=== PATIENT | male | born 1960 | race Caucasian/White ===

== ENCOUNTER 2018-02-07 17:01 | Emergency (ER) | payer OTHER ==
[~2018-02-07] VITALS: Ht 175.3 cm; Wt 89.8 kg
[2018-02-07] MEDS ORDERED: LIDOCAINE 1% Multi-Dose 20 ML VIAL. IJ ONE (17:15)
[2018-02-07] MEDS ORDERED: DIPHTH,PERTUSS(ACELL),TET TOX 0.5 ML DISP.SYRIN. VAX IM ONE (17:15)
[2018-02-07 17:27] VITALS: BP 114/65
[2018-02-07] MEDS ORDERED: AMOX1TAB61 PO (17:34)
[2018-02-07] MEDS ORDERED: LEVO750T31 PO (17:38)
[2018-02-07] MEDS ORDERED: CLIN300C8 PO (17:38)
[2018-02-07] MEDS ORDERED: HYDR-971 PO (17:40)
--- NOTE | 2018-02-07 17:44 | RAD ---
HAND LEFT 3V History: left hand pain, fishing hook in 2nd digit Comparison: None. Findings: 3 views of the left hand are submitted. No radiopaque foreign body or acute fracture is identified. There is bandage material about the second phalanx. Impression: 1. No radiopaque foreign body or acute fracture is identified. Electronically signed by: Marcus Aceves MD (02/07/2018 5:41 PM) [facility]
--- NOTE | 2018-02-08 06:29 | ED.ADGEN ---
Past History Past Medical History: No Pertinent History Past Surgical History: No Surgical History Alcohol Use: None Drug Use: None Adult General HPI HPI Patient is a 58 year old male who presents with a fish hook in the left index finger. Patient was fishing when he somehow accidentally had a 3 pronged fishhook penetrate the skin over the dorsal aspect of the left index finger. No additional injuries. Tetanus is UTD. Review of Systems Review of Systems Constitutional: Denies fever or chills Respiratory: Denies cough or shortness Cardiovascular: No additional information not addressed in HPI Musculoskeletal: Denies back pain or joint pain Integument: Denies rash or skin lesions All other systems were reviewed and found to be within normal limits, except as documented in this note. Current Medications Current Medications Current Medications Medications (Trade) Dose Ordered Sig/Nathaly Start Time Stop Time Status Last Admin Dose Admin Diphtheria/ Tetanus/Acell Pertussis (Boostrix) 0.5 ml ONCE ONCE 02/07/18 17:15 02/07/18 17:29 DC Lidocaine HCl 20 ml 1X ONCE 02/07/18 17:15 02/07/18 17:30 DC 02/07/18 17:10 20 ML Allergies Allergies Allergies Coded Allergies Type Severity Reaction Last Updated Verified No Known Drug Allergies 02/07/18 No Physical Exam Physical Exam Constitutional: Well developed, well nourished, no acute distress, non-toxic appearance HENT: Normocephalic, atraumatic, bilateral external ears normal, oropharynx moist Eyes: EOMI, normal conjunctiva Neck: Normal range of motion Cardiovascular:Heart rate regular rhythm, no murmur Lungs & Thorax: Bilateral breath sounds clear to auscultation Skin: Warm, dry, no erythema, no rash Extremities: There is a 3 pronged fishhook in the left index finger, the dorsal aspect, only one pronged is penetrating the skin. Neurologic: Alert and oriented X 3, normal motor function Psychologic: Affect normal Current Patient Data Vital Signs Vital Signs Date Time Temp Pulse Resp B/P (MAP) Pulse Ox O2 Delivery O2 Flow Rate FiO2 02/07/18 17:27 98.2 70 18 100 Room Air EKG EKG [] Radiology/Procedures Radiology/Procedures No FB seen in Xray that was taken after the fish hook was removed. Course & Med Decision Making Course & Med Decision Making Pertinent Labs and Imaging studies reviewed. (See chart for details) Patient is seen and examined in the ER for a fishhook injury. He fishhook within the left index finger over the dorsal aspect. The elisa of the hook was below the skin. 1% lidocaine was used to anesthetize the area. The area was cleansed with Betadine. Attempted fishhook removal with some pliers but the hook broke and was no longer able to be grasped. Following this an 11 blade scalpel was used to make a 0.5 cm incision near the area where the elisa of the hook was. The incision was made through the skin only and no deeper. Following this, the elisa of the hook was able to be grasped with hemostats and was pulled out. Because the hook broke during the process, an x-ray was completed but there were no remnants of the hook remaining. The wound was cleansed heavily with Betadine again and dressed. Patient did not need a tetanus shot. He was discharged home. He was placed on clindamycin and Levaquin for expanded antibiotic coverage given this fresh water exposure. He was provided some [place] for pain as needed. Return precautions were discussed and all of his questions were answered prior to discharge home. Final Impression Final Impression Fish Hook Injury to finger Dragon Disclaimer Dragon Disclaimer This electronic medical record was generated, in whole or in part, using a voice recognition dictation system. XU HENDERSON DO Feb 08, 2018 06:29
== END 2018-02-07 17:46 | disposition home or self-care (01) ==
LOC: ER 17:01
DX: S60.451A Superficial foreign body of left index finger, initial encounter (principal); X58.XXXA Exposure to other specified factors, initial encounter; Y93.89 Activity, other specified; Y99.8 Other external cause status; Y92.89 Other specified places as the place of occurrence of the external cause
CPT/HCPCS: 10120; 73130; 99284